=== PATIENT | female | born 2000 | race Caucasian/White ===

== ENCOUNTER 2021-08-03 16:31 | Emergency (ER) | payer OTHER ==
[2021-08-03 16:57] VITALS: BP 129/78; PULSE 99; TEMP 98; BMI 19.6
== END 2021-08-03 19:41 | disposition home or self-care (01) ==
LOC: JER 16:31
DX: R05 Cough (principal); R07.9 Chest pain, unspecified; Z11.52 Encounter for screening for COVID-19
CPT/HCPCS: 71046-TC-FY; 93005; 93010; 99283-25; C9803; U0003; U0005

== ENCOUNTER 2021-09-30 12:35 | Emergency (ER) | payer OTHER ==
[2021-09-30 13:01] VITALS: BP 99/59; PULSE 82; TEMP 98.4; BMI 19.6
[2021-09-30] MEDS ORDERED: KETOROLAC TROMETHAMINE 30 MG/1 ML VIAL IM ONE (14:04)
[2021-09-30] MEDS ORDERED: LIDOCAINE VISCOUS 2% ORAL/TOP 15 ML UNIT-DOSE CUP MM ONE (14:05)
[2021-09-30] MEDS ORDERED: KETOROLAC TROMETHAMINE 30 MG/1 ML VIAL ONE (14:17)
[2021-09-30] MEDS ORDERED: LIDOCAINE VISCOUS 2% ORAL/TOP 15 ML UNIT-DOSE CUP ONE (14:18)
== END 2021-09-30 14:44 | disposition home or self-care (01) ==
LOC: JERFT 12:35
PROC: 3E0233Z Introduction of Anti-inflammatory into Muscle, Percutaneous Approach (ICD-10-PCS; principal; 2021-09-30)
DX: K08.89 Other specified disorders of teeth and supporting structures (principal)
CPT/HCPCS: 99283-25

== ENCOUNTER 2022-09-25 19:34 | Emergency (ER) | payer OTHER ==
[2022-09-25 19:52] VITALS: BP 123/63; PULSE 62; RESP 17; TEMP 98.3; BMI 18.3
== END 2022-09-25 22:02 | disposition home or self-care (01) ==
LOC: JER 19:34
DX: U07.1 COVID-19 (principal)
CPT/HCPCS: 0241U-QW; 99283-25

== ENCOUNTER 2024-10-01 14:36 | Inpatient (IN) | payer OTHER ==
[2024-10-01] MEDS ORDERED: KETOROLAC TROMETHAMINE 15 MG/ML VIAL ONE (15:36)
[2024-10-01] MEDS ORDERED: CEFAZOLIN 1 GM/D5W 1 GM/50 ML BAG ONE ×2 (15:36→15:45)
[2024-10-01 15:37] LABS: VENOUS BASE EXCESS -4.5 mmol/L (-2-2); VENOUS O2 SATURATION 62.6 % (70-80); VENOUS PCO2 43.6 mmHg (38-52); VENOUS PH 7.313 (7.310-7.410)
[2024-10-01] MEDS ORDERED: morphine SULFATE 4 MG/ML VIAL ONE ×2 (15:45→16:23)
[2024-10-01] MEDS: KETOROLAC TROMETHAMINE 15 MG/ML VIAL IVPUSH ONE (15:50)
[2024-10-01] MEDS: morphine CARPU-JECT 4 MG/1 ML DISP.SYRIN IVPUSH ONE ×3 (15:51→19:08)
[2024-10-01] MEDS: CEFAZOLIN 1 GM in DEXTROSE 5%-WATER - 50 ML IVPB ONE (15:52)
[2024-10-01] MEDS: LACTATED RINGERS SOLUTION 1,000 ML/1,000 ML INFUS.BAG IV SCH (15:54)
[2024-10-01 15:58] LABS: EOS % 0.7 % (0-4.5); HEMATOCRIT 36.7 % (32.4-45.2); HEMOGLOBIN 12.1 GM/dL (10.7-15.3); LYMPH % 2.6 % (8-40); MCH 30.5 pg (25.7-33.7); MEAN CELL VOLUME 92.2 fl (80-96); MEAN PLT VOLUME 8.4 fl (7.5-11.1); MONO % 7.4 % (3.8-10.2); NEUT % 89.3 % (42.8-82.8); PLATELET COUNT 215 10^3/uL (134-434); RBC 3.98 M/mm3 (3.60-5.2); RDW 13.6 % (11.6-15.6); WHITE BLOOD COUNT 16.9 K/mm3 (4.0-10.0)
[2024-10-01 16:16] LABS: POTASSIUM 3.6 mmol/L (3.5-5.1)
[2024-10-01 16:18] LABS: ALBUMIN 3.3 g/dl (3.4-5.0); CALCIUM 8.6 mg/dL (8.5-10.1)
[2024-10-01 16:19] LABS: BLOOD UREA NITROGEN 8.4 mg/dL (7-18)
[2024-10-01 16:22] LABS: CREATININE 0.8 mg/dL (0.55-1.3)
[2024-10-01 16:23] LABS: BILIRUBIN,TOTAL 0.5 mg/dL (0.2-1); TOT PROT 6.2 g/dl (6.4-8.2)
[2024-10-01] MEDS ORDERED: HYDROmorphone HCl 2 MG/ML VIAL ONE ×3 (17:58→20:28)
[2024-10-01] MEDS: HYDROmorphone HCl 2 MG/ML VIAL IVPUSH ONE ×3 (18:11→20:41)
[2024-10-01] MEDS: HYDROmorphone HCL 2 MG TABLET PO ONE (19:08)
[2024-10-01] MEDS ORDERED: KETAMINE HCL 200 MG/20 ML VIAL ONE (21:28)
[2024-10-01] MEDS: KETAMINE HCL 200 MG/20 ML VIAL IVPUSH ONE ×2 (21:33→22:52)
[2024-10-01] MEDS: KETAMINE HCL 1,000 MG in SODIUM CHLORIDE 480 ML IV SCH ×2 (23:30→23:33)
[2024-10-02 00:23] LABS: HIV INTERPRETATION NEGATIVE (NEGATIVE)
[2024-10-02] MEDS ORDERED: MORPHINE SULFATE 2 MG/ML SYRINGE ONE (00:29)
[2024-10-02] MEDS: MORPHINE SULFATE 2 MG/ML SYRINGE IVPUSH PRN (00:32)
[2024-10-02] MEDS ORDERED: HYDROmorphone HCl 2 MG/ML VIAL ONE (00:44)
[2024-10-02] MEDS: HYDROmorphone HCl 2 MG/ML VIAL IVPUSH ONE (01:00)
[2024-10-02] MEDS ORDERED: PIPERACILLIN/TAZOB 4.5 GM 4.5 GM/100 ML BAG IVPB ONE (01:04)
[2024-10-02] MEDS: PIPERACILLIN/TAZOB 4.5 GM 4.5 GM in DEXTROSE 5%-WATER 100 ML IVPB ONE (01:21)
[2024-10-02] MEDS: KETAMINE HCL 1,000 MG in SODIUM CHLORIDE 480 ML IV SCH (02:00)
[2024-10-02 02:12] LABS: BILIRUBIN,DIRECT 0.3 mg/dL (0.0-0.2)
[2024-10-02 02:15] LABS: BILIRUBIN,TOTAL 0.7 mg/dL (0.2-1); TOT PROT 5.4 g/dl (6.4-8.2)
[2024-10-02] MEDS ORDERED: HYDROmorphone *PCA* 10MG/50ML DISP.SYRIN ONE (03:02)
[2024-10-02] MEDS: LACTATED RINGERS SOLUTION 1,000 ML/1,000 ML INFUS.BAG IV SCH (03:17)
[2024-10-02] MEDS: HYDROmorphone *PCA* 10MG/50ML DISP.SYRIN PCA SCH ×2 (03:18→12:12)
[2024-10-02] MEDS: KETOROLAC TROMETHAMINE 15 MG/ML VIAL IM PRN (03:22)
[2024-10-02] MEDS: VANCOMYCIN/WATER FOR INJ (PEG) 1,000 MG/200 ML BAG IVPB SCH ×2 (03:27→14:27)
[2024-10-02] MEDS: ONDANSETRON 4 MG/2 ML VIAL IVPUSH PRN (03:30)
[2024-10-02] MEDS: CLINDAMYCIN 600MG PREMIX IVPB 600 MG/50 ML BAG IVPB SCH (05:56)
[2024-10-02 07:18] LABS: EOS % 0.2 % (0-4.5); HEMATOCRIT 31.6 % (32.4-45.2); HEMOGLOBIN 10.7 GM/dL (10.7-15.3); LYMPH % 3.9 % (8-40); MEAN CELL VOLUME 91.2 fl (80-96); MEAN PLT VOLUME 8.1 fl (7.5-11.1); MONO % 6.8 % (3.8-10.2); NEUT % 89.1 % (42.8-82.8); PLATELET COUNT 175 10^3/uL (134-434); RBC 3.46 M/mm3 (3.60-5.2)
[2024-10-02 07:31] LABS: POTASSIUM 3.2 mmol/L (3.5-5.1)
[2024-10-02 07:33] LABS: ALBUMIN 2.7 g/dl (3.4-5.0); CALCIUM 7.7 mg/dL (8.5-10.1)
[2024-10-02 07:34] LABS: BLOOD UREA NITROGEN 4.6 mg/dL (7-18); MAGNESIUM 1.7 mg/dL (1.8-2.4)
[2024-10-02 07:36] LABS: CREATININE 0.7 mg/dL (0.55-1.3)
[2024-10-02 07:37] LABS: PHOSPHOROUS 4.6 mg/dL (2.5-4.9)
[2024-10-02 07:55] LABS: INR 1.25 (0.83-1.09); PROTHROMBIN TIME (PATIENT) 14.3 SEC (9.7-13.0)
[2024-10-02 07:58] LABS: ACTIVATED PTT 30.1 SECONDS (25.2-36.5)
[2024-10-02] MEDS: MAGNESIUM 2GM/50ML STERILE WATER IVPB IVPB ONE (09:30)
[2024-10-02] MEDS: PIPERACILLIN/TAZOB 4.5 GM 4.5 GM/100 ML BAG IVPB SCH (09:30)
[2024-10-02] MEDS: PANTOPRAZOLE SODIUM 40 MG VIAL IVPUSH SCH (09:30)
[2024-10-02] MEDS: POTASSIUM CHLORIDE ORAL LIQUID 20 MEQ/15 ML PO ONE (09:30)
[2024-10-02] MEDS: MUPIROCIN 2% TOPICAL OINTMENT FOR DECOLONIZATION NS SCH (09:31)
[2024-10-02] MEDS: lamoTRIgine 100 MG TABLET PO SCH (09:33)
[2024-10-02] MEDS: VENLAFAXINE HCL 75 MG E.R. CAPSULES PO SCH (09:33)
[2024-10-02] MEDS ORDERED: ENOXAPARIN NA (PORCINE) 40 MG/0.4 ML DISP.SYRIN SQ SCH (10:00)
[2024-10-02] MEDS: CLINDAMYCIN 600MG PREMIX IVPB 600 MG/50 ML BAG IVPB ONE (12:12)
[2024-10-02] MEDS: VANCOMYCIN 1,000 MG in DEXTROSE 5%-WATER - 250 ML IVPB ONE (12:12)
[2024-10-02] MEDS: CEFAZOLIN 1 GM/D5W 1 GM/50 ML BAG IVPB SCH (12:12)
[2024-10-02] MEDS: METOCLOPRAMIDE HCL INJECTION 10 MG/2 ML VIAL IVPB ONE (12:13)
[2024-10-02 12:59] LABS: ERYTHROCYTE SEDIMENTATION RATE 22 mm/hr (0-20)
[2024-10-02] MEDS: IBUPROFEN 600 MG TABLET (FP) PO SCH (13:12)
[2024-10-02] MEDS: oxyCODONE HCL 5 MG TABLET PO PRN ×2 (13:12→20:56)
[2024-10-02] MEDS: VANCOMYCIN 1,000 MG in DEXTROSE 5%-WATER - 250 ML IVPB SCH (14:20)
[2024-10-02] MEDS: ACETAMINOPHEN 1000 MG/100 ML BAG IVPB SCH (14:24)
[2024-10-02] MEDS: PIPERACILLIN/TAZOB 4.5 GM 4.5 GM in DEXTROSE 5%-WATER 100 ML IVPB SCH (14:25)
[2024-10-02] MEDS: ENOXAPARIN NA (PORCINE) 40 MG/0.4 ML DISP.SYRIN SQ SCH (14:27)
[2024-10-02] MEDS ORDERED: KETAMINE HCL 1,000 MG in SODIUM CHLORIDE 480 ML IV SCH (14:30)
[2024-10-02] MEDS: PIPERACILLIN/TAZOB 3.375 GM 50 ML IVPB SCH (17:40)
[2024-10-02] MEDS ORDERED: CHLORHEXIDINE GLUCONATE 4% CLEANSER FOR DECOLONIZATION TP SCH (22:00)
[2024-10-02] MEDS: clonazePAM 0.25 MG ODT TABLETS SL SCH (22:27)
[2024-10-03 08:47] LABS: POTASSIUM 3.5 mmol/L (3.5-5.1)
[2024-10-03 08:53] LABS: ALBUMIN 2.5 g/dl (3.4-5.0); BLOOD UREA NITROGEN 5.3 mg/dL (7-18); CALCIUM 8.3 mg/dL (8.5-10.1); MAGNESIUM 2.2 mg/dL (1.8-2.4)
[2024-10-03 08:56] LABS: CREATININE 0.7 mg/dL (0.55-1.3)
[2024-10-03 08:57] LABS: PHOSPHOROUS 3.6 mg/dL (2.5-4.9)
[2024-10-03 08:58] LABS: BILIRUBIN,TOTAL 0.5 mg/dL (0.2-1)
[2024-10-03 10:22] VITALS: BMI 18.4
[2024-10-03 10:54] LABS: BASO % 0.3 % (0-2.0); EOS % 2.6 % (0-4.5); HEMATOCRIT 31.1 % (32.4-45.2); HEMOGLOBIN 10.5 GM/dL (10.7-15.3); LYMPH % 14.1 % (8-40); MCH 31.1 pg (25.7-33.7); MCHC 33.8 g/dl (32.0-36.0); MEAN CELL VOLUME 92.1 fl (80-96); MEAN PLT VOLUME 8.3 fl (7.5-11.1); MONO % 9.8 % (3.8-10.2); NEUT % 73.2 % (42.8-82.8); PLATELET COUNT 208 10^3/uL (134-434); RBC 3.37 M/mm3 (3.60-5.2); RDW 13.2 % (11.6-15.6)
[2024-10-03] MEDS: MINERAL OIL/PET HY-PHL TOPICAL OINTMENT 454 GM JAR TP SCH (17:32)
[2024-10-04 06:28] LABS: ALBUMIN 2.4 g/dl (3.4-5.0)
[2024-10-04 06:31] LABS: BILIRUBIN,DIRECT 0.2 mg/dL (0.0-0.2)
[2024-10-04 06:33] LABS: BILIRUBIN,TOTAL 0.2 mg/dL (0.2-1); TOT PROT 5.1 g/dl (6.4-8.2)
[2024-10-04 07:50] LABS: HEMATOCRIT 29.8 % (32.4-45.2); HEMOGLOBIN 10.3 GM/dL (10.7-15.3); MCH 31.3 pg (25.7-33.7); MCHC 34.6 g/dl (32.0-36.0); MEAN CELL VOLUME 90.6 fl (80-96); MEAN PLT VOLUME 8.1 fl (7.5-11.1); PLATELET COUNT 215 10^3/uL (134-434); RBC 3.29 M/mm3 (3.60-5.2); RDW 13.1 % (11.6-15.6); WHITE BLOOD COUNT 8.4 K/mm3 (4.0-10.0)
[2024-10-04 08:09] LABS: POTASSIUM 3.9 mmol/L (3.5-5.1)
[2024-10-04 08:14] LABS: BLOOD UREA NITROGEN 6.3 mg/dL (7-18); CALCIUM 8.3 mg/dL (8.5-10.1); MAGNESIUM 1.9 mg/dL (1.8-2.4)
[2024-10-04 08:15] LABS: PHOSPHOROUS 3.7 mg/dL (2.5-4.9)
[2024-10-04 08:17] LABS: CREATININE 0.5 mg/dL (0.55-1.3)
[2024-10-04] MEDS: propRANOLol HCL 10 MG TABLET PO SCH (10:18)
[2024-10-04] MEDS: LACTATED RINGERS SOLUTION 1,000 ML/1,000 ML INFUS.BAG IV SCH (12:28)
[2024-10-04 13:53] VITALS: RESP 18
[2024-10-04 16:03] VITALS: BP 110/60; PULSE 68; TEMP 98.6
== END 2024-10-04 18:04 | disposition home or self-care (01) | DRG 383 ==
LOC: JER 14:36 → JERBED 19:14 → OBSVTOIN 22:22 → JICU 10-02 02:42 → J8W 10-02 20:10
PROVIDERS: ADMIT Internal Medicine; ATTEND Internal Medicine
DX: L03.115 Cellulitis of right lower limb (principal); F41.8 Other specified anxiety disorders; F60.3 Borderline personality disorder; M79.604 Pain in right leg; R00.0 Tachycardia, unspecified
CPT/HCPCS: 0241U-QW; 36415; 73552-TC-RT-FY; 73700-TC-RT; 80048; 80053; 80076; 82803; 82962; 83036; 83605; 83735; 84100; 84703; 85025; 85027; 85610; 85651; 85730; 86140; 86803; 87040; 87389; 87481; 93005; 93010; 99285-25; G0378